=== PATIENT | female | born 1950 | race Caucasian/White ===

== ENCOUNTER 2019-11-15 12:55 | Emergency (ER) | payer OTHER, MEDICARE ==
[2019-11-15] MEDS ORDERED: DIPH/PERTUSS(ACELL)/TETANUS VAC/PF 0.5 ML SYR (>=10YO) IM ONE (13:47)
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
[2019-11-15 14:55] VITALS: BP 192/105
== END 2019-11-15 14:54 | disposition home or self-care (01) ==
LOC: ER 12:55
DX: S50.11XA Contusion of right forearm, initial encounter (principal); S20.212A Contusion of left front wall of thorax, initial encounter; S50.811A Abrasion of right forearm, initial encounter; S90.811A Abrasion, right foot, initial encounter; V44.5XXA Car driver injured in collision with heavy transport vehicle or bus in traffic accident, initial encounter; J84.10 Pulmonary fibrosis, unspecified; Z23 Encounter for immunization
CPT/HCPCS: 71046; 90471; 90715; 99284